=== PATIENT | male | born 1990 | race Two or more races ===

== ENCOUNTER 2017-02-20 18:36 | Emergency (ER) | payer MEDICAID ==
[~2017-02-20] VITALS: Ht 180.3 cm; Wt 98.0 kg
[2017-02-20 18:42] VITALS: BP 140/76
== END 2017-02-21 00:24 | disposition left against medical advice (07) ==
LOC: ER 18:36
DX: R51 Headache (principal); Z53.21 Procedure and treatment not carried out due to patient leaving prior to being seen by health care provider